=== PATIENT | male | born 1990 | race American Indian/Alaskan Native ===

== ENCOUNTER 2018-05-03 13:35 | Emergency (ER) | payer OTHER ==
[2018-05-03 13:44] VITALS: BP 154/85
--- NOTE | 2018-05-03 13:47 | Emergency Department Report ---
Blank Doc - Documentation Documentation: This is a 28 y.o. male that presents to ER after syncopal episode while at work. Ordered ekg Fast track for further evaluation.
[2018-05-03] MEDS ORDERED: NACL 0.9% 1000 ML 1,000 ML IV ONE (15:40)
[2018-05-03 15:44] LABS: Basophils # (Auto) 0.1 K/mm3 (0.0-0.1); Basophils % (Auto) 1.1 % (0.0-1.8); Eosinophils % (Auto) 0.6 % (0.0-4.3); Hematocrit 55.8 % (35.5-45.6); Hemoglobin 18.9 gm/dl (11.8-15.2); Lymphocytes # (Auto) 2.4 K/mm3 (1.2-5.4); Mean Corpuscular HGB Conc 34 % (32-34); Mean Corpuscular Volume 86 fl (84-94); Monocytes # (Auto) 0.4 K/mm3 (0.0-0.8); Monocytes % (Auto) 6.7 % (0.0-7.3); Platelet Count 211 K/mm3 (140-440); Red Blood Count 6.49 M/mm3 (3.65-5.03); Red Cell Distribution Width 14.9 % (13.2-15.2)
[2018-05-03 16:02] LABS: Creatine Kinase MB 2.4 ng/mL (0.0-4.0)
[2018-05-03 16:05] LABS: BUN/Creatinine Ratio 10; Blood Urea Nitrogen 8 mg/dL (9-20); Calcium 9.6 mg/dL (8.4-10.2); Hemolysis Index 15
--- NOTE | 2018-05-03 16:37 | Cat Scan Report ---
PROCEDURE: CT HEAD/BRAIN WO CON TECHNIQUE: Computerized tomography of the head was performed without contrast material. Coronal and s agittal reformatted images were provided. CT DOSE LENGTH PRODUCT: 805.42 mGy-cm. HISTORY: syncope, head injury ? Loc COMPARISONS: None currently available. FINDINGS: There is no evidence for acute ischemia. There is no hemorrhage. There is no midline shift. There is no hydrocephalus. There is no mass. Age appropriate holt-white matter attenuation is noted. There is no calvarial fracture. 1.6 cm posterior scalp vertex small contusion or scarring. The temporal bones demonstrate aerated mastoid air cells. The middle ears appear unremarkable. Paranasal sinuses are unremarkable. Globes are intact. IMPRESSION: * No acute intracranial findings. This document is electronically signed by David Mann MD., May 03 2018 04:35:06 PM ET
--- NOTE | 2018-05-03 16:42 | Emergency Department Report ---
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 Patient was sitting down in episode occurred. He felt lightheaded and then woke up on the ground surrounded by coworkers reported that he struck his head. Patient denies headache or scalp tenderness. He also denies any preceding or current pain, chest pain, shortness of breath, nausea, vomiting, melena, hematochezia, or infectious symptoms. He does report some decreased by mouth intake today. His blood pressure is elevated every time he it is checked but he has not followed up to be placed on blood pressure medication. 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 Patient feels back to normal. - Related Data Allergies/Adverse Reactions: Allergies No Known Allergies Allergy (Unverified 05/03/18 13:36) ED Review of Systems ROS: Stated complaint: FELL AND HIT HEAD Other details as noted in HPI Comment: All other systems reviewed and negative ED Past Medical Hx - Past Medical History Previous Medical History?: Yes Additional medical history: Congenital heart disease, corrected as a child. - Surgical History Past Surgical History?: Yes Additional Surgical History: Open heart surgery, congenital heart disease. One surgery as a baby. - Social History Smoking Status: Never Smoker Substance Use Type: None ED Physical Exam - General Limitations: No Limitations - Other Other exam information: General: No limitations, patient is alert in no acute distress Head exam: Atraumatic, normocephalic Eyes exam: Normal appearance, pupils equal reactive to light, extraocular movements intact ENT: Moist mucous membrane Neck exam: Normal inspection, full range of motion, no meningismus nontender Respiratory exam: Clear to auscultation bilateral, no wheezes, rales, crackles Cardiovascular: Normal rate and rhythm, normal heart sounds Abdomen: Soft, nondistended, and nontender, with normal bowel sounds, no rebound, or guarding Extremity: Full range of motion normal inspection no deformity, no calf tenderness or edema Back: Normal Inspection, full range of motion, no tenderness Neurologic: Alert, oriented x3, cranial nerves intact, no motor or sensory deficit Psychiatric: normal affect, normal mood Skin: Warm, dry, intact ED Course Vital Signs 05/03/18 13:42 Temperature 97.9 F Pulse Rate 106 H Respiratory 18 Rate Blood Pressure 154/85 O2 Sat by Pulse 98 Oximetry ED Medical Decision Making - Lab Data Result diagrams: 05/03/18 15:23 05/03/18 15:23 Lab Results 05/03/18 05/03/18 Range/Units 15:23 15:23 WBC 6.5 (4.5-11.0) K/mm3 RBC 6.49 H (3.65-5.03) M/mm3 Hgb 18.9 H (11.8-15.2) gm/dl Hct 55.8 H (35.5-45.6) % MCV 86 (84-94) fl MCH 29 (28-32) pg MCHC 34 (32-34) % RDW 14.9 (13.2-15.2) % Plt Count 211 (140-440) K/mm3 Lymph % (Auto) 37.0 H (13.4-35.0) % [place] % (Auto) 6.7 (0.0-7.3) % Eos % (Auto) 0.6 (0.0-4.3) % Baso % (Auto) 1.1 (0.0-1.8) % Lymph # 2.4 (1.2-5.4) K/mm3 [place] # 0.4 (0.0-0.8) K/mm3 Eos # 0.0 (0.0-0.4) K/mm3 Baso # 0.1 (0.0-0.1) K/mm3 Seg Neutrophils % 54.6 (40.0-70.0) % Seg Neutrophils # 3.5 (1.8-7.7) K/mm3 Sodium 139 (137-145) mmol/L Potassium 3.8 (3.6-5.0) mmol/L Chloride 100.6 (98-107) mmol/L Carbon Dioxide 24 (22-30) mmol/L Anion Gap 18 mmol/L BUN 8 L (9-20) mg/dL Creatinine 0.8 (0.8-1.5) mg/dL Estimated GFR > 60 ml/min BUN/Creatinine Ratio 10 % Glucose 113 H (75-100) mg/dL Calcium 9.6 (8.4-10.2) mg/dL Total Creatine Kinase 316 H (55-170) units/L CK-MB (CK-2) 2.4 (0.0-4.0) ng/mL CK-MB (CK-2) Rel Index 0.7 (0-4) Troponin T < 0.010 (0.00-0.029) ng/mL - EKG Data -: EKG Interpreted by Me (biatrial enlargement) EKG shows normal: sinus rhythm, axis (qrs 228), QRS complexes (qrsd 91), ST-T waves (no stemi) Rate: normal (92) - EKG Data When compared to previous EKG there are: previous EKG unavailable - Radiology Data Radiology results: report reviewed ct head: naf - Medical Decision Making Patient has significant increase in heart rate with standing and is hemoconcentrated likely secondary to dehydration. Patient received IV fluids. CT head and other evaluation unremarkable. 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 - Differential Diagnosis vasovagal, dehydration, arrhythmia, PE, IL, vascular disorder, heart disord Critical Care Time: No Critical care attestation.: If time is entered above; I have spent that time in minutes in the direct care of this critically ill patient, excluding procedure time. ED Disposition Clinical Impression: Syncope, Dehydration, Elevated blood pressure reading Disposition: DC-01 TO HOME OR SELFCARE Is pt being admited?: No Does the pt Need Aspirin: No Condition: Stable Instructions: Dehydration (ED), Syncope (ED), How to Take a Blood Pressure (ED) Additional Instructions: Continue to drink plenty of fluids. Follow up with your doctor or the clinic/do ctor provided. Return if symptoms worsen as indicated by your discharge instructions Referrals: [facility] [place] MD CHAITANYA [Primary Care Provider] - 3-5 Days RICO LYONS MD [Staff Physician] - 3-5 Days ([place]) ROBERTO GATES MD [Staff Physician] - 3-5 Days (Primary care doctor) Time of Disposition: 16:49
== END 2018-05-03 17:06 | disposition home or self-care (01) ==
LOC: ED 13:35
DX: R55 Syncope and collapse (principal); E86.0 Dehydration; I10 Essential (primary) hypertension
CPT/HCPCS: 36415; 70450; 80048; 82550; 82553; 84484; 85025; 93005; 93010; 96360; 99284; J7030

== ENCOUNTER 2018-11-05 00:36 | Emergency (ER) | payer SELFPAY ==
[2018-11-05 02:29] LABS: Bilirubin,Urine NEG (Negative); Blood,Urine NEG (Negative); Color,Urine Straw (Yellow); Protein,Urine <15 mg/dL mg/dL (Negative); Urobilinogen,Urine < 2.0 mg/dL (<2.0); WBC,Urine < 1.0 /HPF (0.0-6.0)
--- NOTE | 2018-11-05 02:43 | Emergency Department Report ---
HPI - General Chief Complaint: Urogenital-Male Time Seen by Provider: 11/05/18 01:16 - [facility] HPI: Room 5 The patient is a 28-year-old male presented with a chief complaint of suprapubic and testicular pain. The patient states he's had constant daily pain from the suprapubic region radiating down to his testicles 7-8 months. The patient states the pain worsens during intercourse and goes away temporarily whenever he urinates or has a bowel movement. Patient denies dysuria or hematuria. Patient denies penile discharge. Patient denies history of fever. The patient states he has seen a physician about this previously (patient states he is uncertain what type of physician it was) and had labs performed but no diagnosis was given. Location: [See above] Duration: [See above] Quality: [See above] Severity: [See above] Timing: [See above] Context: [See above] Modifying factors: [See above] Associated signs and symptoms: [see above] ED Past Medical Hx - Past Medical History Previous Medical History?: Yes Additional medical history: Congenital heart disease, corrected as a child. - Surgical History Past Surgical History?: Yes Additional Surgical History: Open heart surgery, congenital heart disease. One surgery as a baby. - Family History Family history: no significant - Social History Smoking Status: Never Smoker Substance Use Type: None (denies illicit drug use), Alcohol (occasional) - Medications Home Medications: Home Medications Medication Instructions Recorded Confirmed Last Taken Type Ibuprofen [Motrin 800 MG tab] 800 mg PO Q8HR PRN #20 tablet 11/05/18 Unknown Rx traMADol [Ultram] 50 mg PO Q6HR PRN #14 tablet 11/05/18 Unknown Rx ED Review of Systems ROS: Stated complaint: ABDOMINAL PAIN Other details as noted in HPI Constitutional: denies: fever Eyes: denies: eye pain ENT: denies: throat pain Respiratory: no symptoms reported Cardiovascular: denies: chest pain Endocrine: no symptoms reported Gastrointestinal: denies: abdominal pain Genitourinary: denies: dysuria, hematuria, discharge Musculoskeletal: denies: back pain Neurological: denies: headache Physical Exam - Physical Exam Vital Signs: Vital Signs 11/05/18 11/05/18 00:40 00:42 Temperature 97.7 F 97.7 F Pulse Rate 101 H Respiratory 18 Rate Blood Pressure 151/75 [Right] O2 Sat by Pulse 100 Oximetry Physical Exam: GENERAL: The patient is well-developed well-nourished male lying on stretcher not appearing to be in acute distress. [] HEENT: Normocephalic. Atraumatic. Extraocular motions are intact. Patient has moist mucous membranes. NECK: Supple. Trachea midline CHEST/LUNGS: Clear to auscultation. There is no respiratory distress noted. HEART/CARDIOVASCULAR: Regular. There is no tachycardia. There is no gallop rub or murmur. ABDOMEN: Abdomen is soft, nontender. Patient has normal bowel sounds. There is no abdominal distention. SKIN: There is no rash. There is no edema. There is no diaphoresis. NEURO: The patient is awake, alert, and oriented. The patient is cooperative. The patient has normal speech MUSCULOSKELETAL: There is no evidence of acute injury. Genitourinary: Bilateral cremasteric reflexes present. No abnormal lesions seen ED Course Vital Signs 11/05/18 11/05/18 00:40 00:42 Temperature 97.7 F 97.7 F Pulse Rate 101 H Respiratory 18 Rate Blood Pressure 151/75 [Right] O2 Sat by Pulse 100 Oximetry ED Medical Decision Making - Lab Data Laboratory Tests 11/05/18 02:19 Urine Color Straw Urine Turbidity Clear Urine pH 6.0 Ur Specific [place] 1.005 Urine Protein <15 mg/dl Urine Glucose (UA) Neg Urine Ketones Neg Urine Blood Neg Urine Nitrite Neg Urine Bilirubin Neg Urine Urobilinogen < 2.0 Ur Leukocyte Esterase Neg Urine WBC (Auto) < 1.0 Urine RBC (Auto) 1.0 - Radiology Data Radiology results: report reviewed (testicular ultrasound), image reviewed (testicular ultrasound) [address] [address] Ultrasound Report Signed Patient: OLENA GREWAL II MR#: [id number] : 1990 Acct:[id number] Age/Sex: 28 / M ADM Date: 11/05/18 Loc: ED Attending Dr: Ordering Physician: CASSIA FERNANDO MD Date of Service: 11/05/18 Procedure(s): US testicular doppler comp Accession Number(s): [id number] cc: CASSIA FERNANDO MD Scrotal ultrasound INDICATION: Scrotal pain No testicular masses are seen. Good flow is seen in both testicles. Mild bilateral microlithiasis is thought unlikely to be significant. A right epididymal cyst is seen measuring 14 mm. Left epididymis appears within normal limits. IMPRESSION: No acute abnormalities are seen Signer Name: Jhonatan Castaneda MD Signed: 11/05/2018 2:42 AM Workstation Name: [id number] Transcribed By: BARBARA Dictated By: Jhonatan Castaneda MD Electronically Authenticated By: Jhonatan Castaneda MD Signed Date/Time: 11/05/18241 DD/ 9 TD/TT: - Differential Diagnosis epididymitis, UTI, cystitis, testicular torsion Critical care attestation.: If time is entered above; I have spent that time in minutes in the direct care of this critically ill patient, excluding procedure time. ED Disposition Clinical Impression: Testicular pain, Dyspareunia Disposition: - TO HOME OR SELFCARE Is pt being admited?: No Does the pt Need Aspirin: No Condition: Stable Instructions: Testicle Pain (ED) Additional Instructions: Return to the emergency department should you develop worsening symptoms, inability to tolerate food or liquids, high fever or any other concerns Prescriptions: Ibuprofen [Motrin 800 MG tab] 800 mg PO Q8HR PRN #20 tablet PRN Reason: Pain, Moderate (4-6) traMADol [Ultram] 50 mg PO Q6HR PRN #14 tablet PRN Reason: Pain Referrals: [facility] MD CHAITANYA [Primary Care Provider] - 3-5 Days DORA PENA MD [Staff Physician] - [facility] (Dr. Pena is a urologist. Please follow-up with him for further evaluation) Time of Disposition: 02:59
--- NOTE | 2018-11-05 02:46 | Ultrasound Report ---
Scrotal ultrasound INDICATION: Scrotal pain No testicular masses are seen. Good flow is seen in both testicles. Mild bilateral microlithiasis is thought unlikely to be significant. A right epididymal cyst is seen measuring 14 mm. Left epididymis appears within normal limits. IMPRESSION: No acute abnormalities are seen Signer Name: Jhonatan Castaneda MD Signed: 11/05/2018 2:42 AM Workstation Name: [id number]
[2018-11-05 03:16] VITALS: BP 133/72
== END 2018-11-05 03:15 | disposition home or self-care (01) ==
LOC: ED 00:36
DX: N53.12 Painful ejaculation (principal)
CPT/HCPCS: 81001; 93975